=== PATIENT | male | born 1975 | race Caucasian/White ===

== ENCOUNTER → 2017-06-17 | Emergency (ER) | payer SELFPAY ==
[~2017-06-17] VITALS: Ht 182.9 cm; Wt 129.3 kg
[~2017-06-17] MED LIST: AMIODARONE HCL400 MG PO; ASPIRIN81 MG PO; ATORVASTATIN CA40 MG PO; COREG25 MG PO; FUROSEMIDE20 MG PO; LISINOPRIL10 MG PO; SPIRONOLACTONE25 MG PO
--- NOTE | 2017-06-17 16:03 | EKG ---
[facility] [address] [facility] [place], [place] [address] Signed Wide QRS tachycardia Likely Ventricular Tachycardia Abnormal ECG No previous ECGs available Confirmed by NICKIE GAONA MD ([id number] on 06/17/2017 4:02:44 PM Electronically Signed By: NICKIE GAONA MD 06/17/17 1603 PATIENT NAME: HERVE MACHADO Electrocardiogram DATE OF : 71 PHYSICIAN: NICKIE GAONA MD REPORT #: [id number] REPORT IS CONFIDENTIAL AND NOT TO BE RELEASED WITHOUT AUTHORIZATION
--- NOTE | 2017-06-19 15:03 | EKG ---
[facility] [address] [facility] [place] [address] Signed Sinus rhythm with premature atrial complexes with aberrant conduction Nonspecific intraventricular block Abnormal ECG When compared with ECG of 17-JUN-2017 09:34, (Unconfirmed) aberrant conduction is now present Vent. rate has decreased BY 78 BPM Nonspecific T wave abnormality has replaced inverted T waves in Inferior leads Confirmed by FABIANO JENKINS MD ([id number] on 06/19/2017 3:03:16 PM Electronically Signed By: FABIANO JENKINS MD 06/19/17 1503 PATIENT NAME: HERVE MACHADO Electrocardiogram DATE OF : 71 PHYSICIAN: FABIANO JENKINS MD REPORT #: [id number] REPORT IS CONFIDENTIAL AND NOT TO BE RELEASED WITHOUT AUTHORIZATION
== END | disposition home or self-care (01) ==
LOC: ED 09:26
DX: I47.2 Ventricular tachycardia (principal); I25.2 Old myocardial infarction; Z91.041 Radiographic dye allergy status; Z79.899 Other long term (current) drug therapy; Z79.82 Long term (current) use of aspirin
CPT/HCPCS: 80053; 84484; 85025; 93005; 93010; 96361; 96374; 99284; J7030